=== PATIENT | female | born 1985 | race Caucasian/White ===

== ENCOUNTER 2019-04-23 08:35 | Outpatient (CLI) | payer SELFPAY ==
[2019-04-24 08:19] LABS: MUMPS ANTIBODIES, IGG 42.6 AU/mL (Immune >10.9); RUBELLA ANTIBODIES, IGG 2.81 index (Immune >0.99); RUBEOLA ANTIBODIES, IGG 85.8 AU/mL (Immune >29.9); VARICELLA-ZOSTER VIRUS AB, IGG 1229 index (Immune >165)
== END 2019-04-23 23:59 | disposition home or self-care (01) ==
LOC: LAB 08:35
PROVIDERS: ATTEND Obstetrics & Gynecology
DX: Z00.00 Encounter for general adult medical examination without abnormal findings (principal); F17.200 Nicotine dependence, unspecified, uncomplicated
CPT/HCPCS: 36415; 86706; 86735; 86762; 86765